=== PATIENT | female | born 1990 | race American Indian/Alaskan Native ===

== ENCOUNTER 2019-12-26 19:37 | Emergency (ER) | payer MEDICAID, SELFPAY ==
[2019-12-26 19:48] VITALS: BP 143/83; PULSE 95; RESP 18; TEMP 37.1; O2SAT 99; BMI 17.2
[2019-12-26 21:18] VITALS: BP 111/68; PULSE 85; RESP 16; O2SAT 97
--- NOTE | 2019-12-26 21:23 | ED.SKABFB ---
HPI - Skin/Abscess/Foreign Bdy <Sudhir Cao [facility] - Last Filed: 12/26/19 21:44> General Chief complaint: Skin/Abscess/Foreign Body Stated complaint: Needs Breast Examine Time Seen by Provider: 12/26/19 20:40 Source: patient Mode of arrival: Ambulatory Limitations: no limitations History of Present Illness HPI narrative: This is a 29-year-old female, smoker, who has noncontributing medical history presents to ED with chief complain of intermittent bilateral breast tenderness and small lumps. Patient reports she noticed 1st about a year ago and last 6 months patient had increasing breast sensitivity. Patient reports some red dots on side of breasts. Also she reports intermittent nausea, medial elbow joint pain, and some weight loss. Patient denies fever, chills, vomiting. Patient denies deformity or small joint stiffness. Patient denies family history of rheumatoid arthritis. She reports paternal grandmother had breast cancer and she thinks her maternal grandmother also had breast disease. Patient denies taking hormonal control pills. She is not sure breast tenderness is related to premenstrual symptoms. 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 Related Data Allergies Allergy/AdvReac Type Severity Reaction Status Date / Time No Known Drug Allergies Allergy Verified 12/26/19 19:54 Review of Systems <Sudhir SanfordMariposa [facility] - Last Filed: 12/26/19 21:44> Review of Systems Narrative: General: Denies fever, chills, fatigue, malaise, sweats. HEENT: Denies sinus pain, ear pain, sore throat, difficulty swallowing, dizziness. Respiratory: Denies dyspnea, cough, wheezing, hemoptysis, sputum. Cardiovascular: Denies chest pain, palpitations, orthopnea, edema. Gastrointestinal: Denies (+) intermittent nausea, vomiting, abdominal pain, diarrhea, constipation, melena. : Denies dysuria, frequency, incontinence, hematuria, urinary retention. Musculoskeletal: See HPI Skin: See HPI Neurologic: Denies weakness, headache, numbness, change in speech, confusion, seizures, incoordination. Psychiatric: No concerning psychosocial issues. 12-point review of systems is negative except for those stated above. Patient History <Sudhir ANTONIO Cao - Last Filed: 12/26/19 21:44> Medical History No significant past medical history (Acute) Surgical History No pertinent past surgical history (Acute) Social History Smoking Status: Never smoker Smoking Status: Never smoker alcohol intake frequency: 0-2 drinks per day Substance Use Type: marijuana Exam <ANTONIO Baird - Last Filed: 12/26/19 21:44> Narrative Exam Narrative: GEN: Alert, oriented x 3, well but thin appearing and in no acute distress. Head: Normal cephalic, atraumatic. No scalp or temporal tenderness, palpable mass or rash. EYES: Pupils are equal, round, and reactive to light and accommodation. Extraocular muscles are intact bilaterally. There is no subconjunctival hemorrhage, exudate and sclera non-icteric. ENT: Hearing grossly intact. Nose without bleeding, purulent discharge or deviation. Mucous membrane moist, no mucosal lesion. Throat without erythema, tonsillar hypertrophy or exudate. Uvula in midline, airway patent. Neck: Trachea in midline. No JVD, non-tender without lymphadenopathy. No masses or thyroid megaly. Supple, non-tender and no meningeal signs. CARDIAC: Normal regular rate and rhythm without murmurs, gallops, or rubs. No chest wall tenderness. No peripheral edema, cyanosis or pallor. Capillary refill is less than 2 seconds. RESPIRATORY: Lungs are clear to auscultate bilaterally. No cough, wheezes, rales, or rhonchi. No stridor, respiratory distress, increase work of breathing, or accessary muscle used. ABD: Abdomen soft, nontender and non-distended. No guarding or rebound tenderness to palpate. Bowel sounds are normal in all 4 quadrants. There is no palpable masses or organomegaly. BREAST: Chaperoned by XIMENA Malone. Breasts are symmetrical, no dimples or nipple drainage. No [place] like uneven skin tone appreciate. No inverted nipples. No mass or swelling appreciated. No warmth, erythema skin. EXT: Full painless ROM of all extremities with no loss of sensation, strength, effusion or edema. No erythema, deformity, warmth to palpate in left medial elbow or bilateral hands or fingers. SKIN: Warm, dry, normal color for patient. No erythema, lesions or rash over visible areas. BACK: Nontender without deformity or crepitance. No flank tenderness. NEUROLOGICAL: Alert and oriented to place, time and person. Sensation and motor function intact bilaterally. No facial droops, dysphasia. PSYCHIATRIC: Good judgement and reason, without hallucinations, abnormal affect or abnormal behaviors during the examination. Patient is not suicidal. Initial Vital Signs Initial Vital Signs: Vital Signs Temperature 98.7 F 12/26/19 19:48 Pulse Rate 95 H 12/26/19 19:48 Respiratory Rate 18 12/26/19 19:48 Blood Pressure 143/83 H 12/26/19 19:48 Pulse Oximetry 99 12/26/19 19:48 <Giacomo Vázquez MD - Last Filed: 12/27/19 03:12> Initial Vital Signs Initial Vital Signs: Vital Signs Temperature 98.7 F 12/26/19 19:48 Pulse Rate 95 H 12/26/19 19:48 Respiratory Rate 18 12/26/19 19:48 Blood Pressure 143/83 H 12/26/19 19:48 Pulse Oximetry 99 12/26/19 19:48 Scores <ANTONIO Baird - Last Filed: 12/26/19 21:44> GCS Spray coma scale eye opening: Spontaneous [place] coma scale verbal response: Orientated Spray coma scale motor response: Obey commands Spray coma scale total score: 15 qSOFA Altered Mental Status (GCS <15): No Respiratory rate greater than/equal to 22: No Systolic blood pressure less than or equal to 100: No qSOFA Total: 0 0-1 Not High Risk 1-3 High risk Course <ANTONIO Baird - Last Filed: 12/26/19 21:44> Vital Signs Vital signs: Vital Signs - 8 hr 12/26/19 19:48 12/26/19 21:18 Temperature 98.7 F Pulse Rate 95 H 85 Respiratory Rate 18 16 Blood Pressure 143/83 H 111/68 Pulse Oximetry 99 97 <Giacomo Vázquez MD - Last Filed: 12/27/19 03:12> Vital Signs Vital signs: Vital Signs - 8 hr 12/26/19 19:48 12/26/19 21:18 Temperature 98.7 F Pulse Rate 95 H 85 Respiratory Rate 18 16 Blood Pressure 143/83 H 111/68 Pulse Oximetry 99 97 MDM - Skin/Abscess/Foreign Bdy <ANTONIO Baird - Last Filed: 12/26/19 21:44> Differential Diagnosis Differential diagnosis: Likely other (breast mass, fibrocystic breast, mastalgia, pre menstrual symptoms, ) Medical Records Attestation: I reviewed the patient's medical records. Lab Data Attestation: I reviewed the patient's lab results. Labs: Point of Care Testing Test Results Negative Urine Dip Bedside Urine Glucose Negative Bedside Urine Bilirubin - Negative Bedside Urine Ketone - Negative Urine Specific [place] 1.000 Bedside Urine Occult Blood - Negative Bedside Urine pH 6.5 Bedside Urine Protein - Negative Bedside Urine Urobilinogen - Negative Bedside Urine Nitrite - Negative Bedside Urine Leukocytes - Negative Esterase MDM Narrative Medical decision making narrative: This is a 29 year female who presents to ED with intermittent bilateral breast tenderness last 1 year which became more consistent for last 6 months. test was negative. Breast exam is not consistent with mastitis and was unremarkable. Patient has another ultrasound test scheduled in 3 days. We discussed in details of abnormal findings during breast self exam. Patient also reports nonspecific symptoms nausea, some weight loss, and big joint discomfort. Again, physical exam was unremarkable. Patient advised to take [id number] Tylenol and or Motrin as needed for discomfort. Assured the patient findings are not consistent with infection or breast cancer. Highly recommended to follow up with breast ultrasound test in 3 days as scheduled. Also advised patient to follow-up with primary care physician with other nonspecific symptoms and further evaluation. Patient verbalized understanding and agreement with treatment plan. <Giacomo Vázquez MD - Last Filed: 12/27/19 03:12> Lab Data Labs: Point of Care Testing Test Results Negative Urine Dip Bedside Urine Glucose Negative Bedside Urine Bilirubin - Negative Bedside Urine Ketone - Negative Urine Specific [place] 1.000 Bedside Urine Occult Blood - Negative Bedside Urine pH 6.5 Bedside Urine Protein - Negative Bedside Urine Urobilinogen - Negative Bedside Urine Nitrite - Negative Bedside Urine Leukocytes - Negative Esterase Discharge Plan Departure Patient Disposition: Home Clinical Impression: Breast pain in female Discharge Date/Time: 12/26/19 21:19 Instructions: DI for Breast Pain (Mastalgia) Activity Restrictions/Additional Instructions: You have been diagnosed with intermitten breast tenderness and lumpy to palpate. Unremarkable physical exam. What to do: *Take your medications as directed. You can take [id number] Tylenol and or Motrin as needed for discomfort. *Follow up with your primary care provider in 2-3 days, call for an appointment. Please follow-up with ultrasound test appointment on . Let them know you were seen in the ED and that we asked you to be seen in follow up. You can follow-up with your primary care physician as needed for generalized bodyaches, elbow joint pain and weight loss. *Return to ED if you have any new, worsening, or concerning symptoms, such as [worsening pain, fever, chills, nausea or vomiting, chest pain, breathing difficulty, or any acute concerns].
== END 2019-12-26 21:19 | disposition home or self-care (01) ==
PROVIDERS: Emergency Provider Nurse Practitioner Family
DX: N64.4 Mastodynia (principal)
CPT/HCPCS: 81003; 81025; 99282

== ENCOUNTER 2020-02-01 00:08 | Emergency (ER) | payer OTHER, SELFPAY ==
[2020-02-01 00:15] VITALS: BP 127/85; PULSE 90; RESP 17; TEMP 37; O2SAT 100; BMI 16.2
--- NOTE | 2020-02-01 00:21 | ED_ITS ---
HPI - General Adult General Chief complaint: Extremity Problem,Nontraumatic Stated complaint: Had mastectomy yesterday and leg is swelling Time Seen by Provider: 02/01/20 00:15 Source: patient Mode of arrival: Ambulatory Limitations: no limitations History of Present Illness HPI narrative: Patient is a 30-year-old female who yesterday underwent a double mastectomy and discharged on the same day. She reports that this evening she had pain behind her left knee and felt like her left leg was somewhat swollen and somewhat tense. She denies any chest pain. States she has had some shortness of breath but this is not new and has been around since prior to her surgery. No fevers. She was concerned about a blood clot in her left lower extremity. Related Data Allergies Allergy/AdvReac Type Severity Reaction Status Date / Time No Known Drug Allergies Allergy Verified 12/26/19 19:54 Review of Systems Constitutional Constitutional: Denies fever(s) Cardiovascular Cardiovascular: Denies chest pain Respiratory Respiratory: Denies cough Musculoskeletal Comments: Pain behind the left knee with swelling Integumentary/Breasts Skin/Breast: Denies lesions and Denies rash Neurologic Neurologic: Denies behavioral changes Psychiatric Psychiatric: Denies behavioral changes Hematologic/Lymphatic Hematologic/Lymphatic: Denies easy bleeding and Denies easy bruising Patient History Medical History (Updated 02/01/20 @ 01:22 by Antoni Patel DO) No significant past medical history Surgical History No pertinent past surgical history Social History Smoking Status: Never smoker Smoking Status: Never smoker alcohol intake frequency: 0-2 drinks per day Substance Use Type: marijuana Exam Initial Vital Signs Initial Vital Signs: Vital Signs Temperature 98.6 F 02/01/20 00:15 Pulse Rate 90 02/01/20 00:15 Respiratory Rate 17 02/01/20 00:15 Blood Pressure 127/85 02/01/20 00:15 Pulse Oximetry 100 02/01/20 00:15 Const General: cooperative and comfortable Limitations: mental status not altered HENMT Head: normal to inspection and normocephalic Resp Effort & Inspection: normal respiratory effort Auscultation: clear to auscultation bilaterally Cardio Rate: regular rate Rhythm: regular rhythm Skin Lesions: no lesions Rashes: no rashes Extrem Other: Patient's left lower extremity is slightly swollen compared to the right however has no pitting edema. Calf is soft. Thigh is soft. Reports tenderness both lateral and posterior to the left knee. Psych Appearance: grossly normal and well kempt Course Orders Ordered: ED Orders 02/01/20 00:22 [facility] venous low extrem lt Stat 02/01/20 00:25 Basic Metabolic Panel Stat Complete Blood Count AUTO DIFF Stat Vital Signs Vital signs: Vital Signs - 8 hr 02/01/20 00:15 Temperature 98.6 F Pulse Rate 90 Respiratory Rate 17 Blood Pressure 127/85 Pulse Oximetry 100 Medical Decision Making Lab Data Lab results reviewed: Yes I reviewed the patient's lab results. Result diagrams: 02/01/20 00:25 02/01/20 00:25 Labs: Lab Results 02/01/20 02/01/20 Range/Units 00:25 00:25 WBC 10.1 (4.5-11.0) X10^3/uL RBC 3.63 L (4.0-5.2) X10^6/uL Hgb 10.7 L (12.0-16.0) g/dL Hct 31.3 L (36-46) % MCV 86.3 (80-100) fL MCH 29.4 (26-34) PG MCHC 34.0 (30-36) % RDW 12.7 (11.6-14.8) % Plt Count 249 (150-400) X10^3/uL Neut % (Auto) 62.4 (50-75) % Lymph % (Auto) 30.3 (25-40) % [place] % (Auto) 5.7 (3-14) % Eos % (Auto) 1.1 L (2-4) % Baso % (Auto) 0.5 (0-2) % Neut # (Auto) 6300 (7795-6251) /uL Lymph # (Auto) 3100 (2301-7342) /uL [place] # (Auto) 600 (0-900) /uL Eos # (Auto) 100 (0-450) /uL Baso # (Auto) 0 (0-100) /uL Sodium 128 L (137-145) mmol/L Potassium 3.5 (3.4-5.1) mmol/L Chloride 94 L (98-107) mmol/L Carbon Dioxide 28 (22-32) mmol/L BUN 5 L (7-17) mg/dL Creatinine 0.73 (0.52-1.04) mg/dL Estimated GFR > 60.0 (>60) mL/min BUN/Creatinine Ratio 6.8 (6-22) Glucose 116 H (70-100) mg/dL Calcium 8.4 (8.4-10.2) mg/dL Imaging Data US - DVT: Radiologist's Impression: No DVT seen in the left lower extremity MDM Narrative Medical decision making narrative: No DVT seen in the left lower extremity. It is somewhat swollen compared to the right. I suspect that her presenting symptoms are musculoskeletal in origin. No need for anticoagulation. Discussed all this with the patient. We did discuss return precautions and follow-up instructions. She expressed understanding and agreement. Discharge Plan Departure Patient Disposition: Home Clinical Impression: Left leg swelling Activity Restrictions/Additional Instructions: Continue all of your postoperative instructions given to you by the surgeon. I do recommend that you get up and walk around like we discussed. Keep all of your scheduled medical appointments. Return to the emergency department for any new or worsening symptoms
--- NOTE | 2020-02-01 00:22 | DI.US.S_ITS ---
PROCEDURE: US PERIPH VENOUS LOW EXTREM LT INDICATIONS: LEFT LEG EDEMA ONE DAY POST BILATERAL MASTECTOMY TECHNIQUE: Real-time imaging, as well as color and pulse Doppler interrogation, were performed of the lower extremity deep veins from the inguinal ligament to the popliteal fossa. COMPARISON: None. FINDINGS: The common femoral, femoral and popliteal veins are normally compressible, and free of intraluminal thrombus. Color and pulse Doppler demonstrate normal phasic intraluminal flow. There is normal augmentation response to distal compression maneuver. IMPRESSION: No DVT found. Dictated by: Hector Hancock M.D. on 02/01/2020 at 9:02 Approved by: Hector Hancock M.D. on 02/01/2020 at 9:03
[2020-02-01 00:34] LABS: Add Manual Diff / Slide Review NO; Basophils Absolute Auto 0 /uL (0-100); Basophils Percent Auto 0.5 % (0-2); Eosinophils Absolute Auto 100 /uL (0-450); Eosinophils Percent Auto 1.1 % (2-4); Hematocrit 31.3 % (36-46); Hemoglobin 10.7 g/dL (12.0-16.0); Lymphocytes Absolute Auto 3100 /uL (1100-4500); Lymphocytes Percent Auto 30.3 % (25-40); Mean Corpuscular Hemoglobin 29.4 PG (26-34); Mean Corpuscular Volume 86.3 fL (80-100); Monocytes Absolute Auto 600 /uL (0-900); Monocytes Percent Auto 5.7 % (3-14); Neutrophils Absolute Auto 6300 /uL (1500-7000); Neutrophils Percent Auto 62.4 % (50-75); Platelet Count 249 X10^3/uL (150-400); Red Blood Cell Count 3.63 X10^6/uL (4.0-5.2); Red Cell Distribution Width 12.7 % (11.6-14.8); White Blood Cell Count 10.1 X10^3/uL (4.5-11.0)
[2020-02-01 00:46] LABS: BUN Creatinine Ratio 6.8 (6-22); Blood Urea Nitrogen 5 mg/dL (7-17); Calcium 8.4 mg/dL (8.4-10.2); Carbon Dioxide 28 mmol/L (22-32); Chloride 94 mmol/L (98-107); Estimated Glomerular Filt Rate > 60.0 mL/min (>60); Glucose 116 mg/dL (70-100); HEMOLYSIS < 15 (0-50); Potassium 3.5 mmol/L (3.4-5.1); Sodium 128 mmol/L (137-145)
[2020-02-01 01:52] VITALS: PULSE 62; RESP 18; O2SAT 97
== END 2020-02-01 01:58 | disposition home or self-care (01) ==
PROVIDERS: Emergency Provider Emergency Medicine
DX: M79.89 Other specified soft tissue disorders (principal); Z98.890 Other specified postprocedural states
CPT/HCPCS: 36415; 80048; 85025; 93971; 99284

== ENCOUNTER 2020-03-17 00:05 | Emergency (ER) | payer OTHER, MEDICAID, SELFPAY ==
[2020-03-17] VITALS (10 sets, daily range): BP systolic 98–147; BP diastolic 57–88; PULSE 91–162; RESP 15–24; O2SAT 93–100; BMI 34.5
--- NOTE | 2020-03-17 00:12 | ED.ARRPALP ---
HPI - Arrhythmia/Palpitations General Chief Complaint: Arrhythmia/Palpitations Stated Complaint: heart beating fast,undergoing chemo Time Seen by Provider: 03/17/20 00:05 Source: patient and family Mode of arrival: Ambulatory Limitations: no limitations History of Present Illness HPI narrative: Of breast cancer and recent initiation of chemotherapy presents with her significant other and a chief complaint of a relatively sudden onset rapid heart rate and anxious feeling. She has been in her normal state of health throughout the course the day. She denies any nausea, vomiting or diarrhea. She denies any chest pain but feels short of breath. She has numbness and tingling around her lips in her fingertips and feels quite anxious. She had bilateral mastectomy in January and 1st dose of chemotherapy last week. She sees Oncology locally and otherwise denies new medications or dietary change. She denies use of any street drugs or alcohol. MD complaint: rapid heart beat, heart racing, palpitations and irregular heart beat Onset (ago): hour(s) Duration: constant Severity: moderate Context: occurred during rest Associated symptoms: anxiety Related Data Allergies Allergy/AdvReac Type Severity Reaction Status Date / Time No Known Drug Allergies Allergy Verified 12/26/19 19:54 Review of Systems Constitutional Constitutional: Denies chills, Denies fatigue, Denies fever(s), Denies frequent falls, Denies lethargy and Denies weakness Eyes Eyes: Denies change in vision, Denies eye discharge, Denies irritation and Denies loss of vision ENT Ears, Nose, Mouth, and Throat: Denies change in voice, Denies dizziness, Denies neck pain, Denies sore throat and Denies throat swelling Cardiovascular Cardiovascular: Denies chest pain, Reports irregular heart rhythm, Reports lightheadedness, Reports palpitations, Reports dyspnea, Denies dyspnea on exertion and Denies orthopnea Respiratory Respiratory: Denies cough, Reports dyspnea, Denies dyspnea on exertion and Denies wheezing Gastrointestinal Gastrointestinal: Denies abdominal pain, Denies change in bowel habits, Denies diarrhea, Denies nausea and Denies vomiting Musculoskeletal Musculoskeletal: Denies neck pain and Denies numbness Integumentary/Breasts Skin/Breast: Denies pruritus, Denies erythema, Denies rash and Denies wounds Neurologic Neurologic: Denies behavioral changes, Denies confusion, Denies dizziness, Denies frequent falls, Denies loss of vision, Denies numbness and Denies weakness Psychiatric Psychiatric: Denies anxiety, Denies behavioral changes, Denies confusion, Denies depression, Denies homicidal ideation and Denies suicidal ideation Endocrine Endocrine: Denies fatigue, Denies flushing and Reports palpitations Hematologic/Lymphatic Hematologic/Lymphatic: Denies easy bruising Allergic/Immunologic Allergic/Immunologic: Denies urticaria, Denies throat swelling and Denies wheezing Patient History Medical History (Updated 03/17/20 @ 03:05 by Chris Troibio DO) No significant past medical history Surgical History No pertinent past surgical history Social History Smoking Status: Never smoker Smoking Status: Never smoker alcohol intake frequency: 0-2 drinks per day Substance Use Type: marijuana Exam Narrative Exam Narrative: GENERAL: [30] year old patient appears stated age. Thin, very anxious, rapid breathing. HEAD: Atraumatic. Normocephalic. EYES: Pupils equal round and reactive. Extraocular motions intact. No scleral icterus. No injection or drainage. ENT: Nose without bleeding, purulent drainage. Throat without erythema, tonsillar hypertrophy or exudate. Airway patent. NECK: Trachea midline. Non tender CARDIOVASCULAR: Tachycardic and regular without murmurs, gallops, or rubs. RESPIRATORY: Clear to auscultation. Breath sounds equal bilaterally. No wheezes, rales, or rhonchi. GASTROINTESTINAL: Abdomen soft, non-tender, nondistended. EXTREMITIES: No edema or joint tenderness. BACK: Nontender without deformity or crepitance. No flank tenderness. NEURO: AOx3. SKIN: No rash or erythema of visible areas Initial Vital Signs Initial Vital Signs: Vital Signs Pulse Rate 162 H 03/17/20 00:15 Pulse Oximetry 100 03/17/20 00:15 Scores Wells' Criteria for PE Clinical signs and symptoms of DVT: No PE is #1 Dx or equally likely: No Heart rate > 100: Yes Immobilization at least 3 days or surg in previous 4 weeks: No History of PE or DVT: No Hemoptysis: No Malignancy w/Treatment within 6 months or palliative: Yes Wells' PE Score total: 2.5 Course Course Course Narrative: patient feeling much better, HR down to the 90s. Repeat WBC down to 22. CTA shows no PE or other acute process. Orders Ordered: ED Orders 03/17/20 00:15 EKG-12 Lead Stat 03/17/20 00:45 Basic Metabolic Panel Stat Complete Blood Count AUTO DIFF Stat D Dimer Stat Magnesium Stat Thyroid Stimulating Hormone Stat Troponin & CK Cardiac Panel Stat 03/17/20 01:34 CT angio chest PE protocol Stat 03/17/20 02:40 White Blood Cell Count Stat Sodium Chloride (Normal Saline 0.9%) 1,000 mls @ 150 mls/hr IV CONT MISAEL Last Admin: 03/17/20 01:01 Dose: 150 mls/hr Documented by: JASPER Consultations Consultation #1: call to supervisor photocomposition Oncology. (Dr. Lopez) 03/07 got Doxorubicin and Neulasta with echo noting EF 65%. Not likely a direct cardiotoxic from the meds. Recommends hydration and close follow up. Return precautions. Vital Signs Vital signs: Vital Signs - 8 hr 03/17/20 00:15 03/17/20 00:30 03/17/20 01:00 Pulse Rate 162 H 157 H 146 H Respiratory Rate 23 15 Blood Pressure 147/88 H 127/82 Pulse Oximetry 100 99 93 03/17/20 01:30 03/17/20 02:00 03/17/20 02:09 Pulse Rate 122 H 114 H 119 H Respiratory Rate 17 17 17 Blood Pressure 116/67 109/62 Pulse Oximetry 96 99 96 03/17/20 02:30 03/17/20 03:00 Pulse Rate 110 H 102 H Respiratory Rate 24 24 Blood Pressure 108/63 98/58 L Pulse Oximetry 95 97 MDM - Arrhythmia/Palpitations Lab Data Result diagrams: 03/17/20 02:40 03/17/20 00:45 Labs: Lab Results 03/17/20 03/17/20 03/17/20 Range/Units 00:45 00:45 00:45 WBC 28.9 H (4.5-11.0) X10^3/uL RBC 4.14 (4.0-5.2) X10^6/uL Hgb 11.8 L (12.0-16.0) g/dL Hct 35.4 L (36-46) % MCV 85.5 (80-100) fL MCH 28.5 (26-34) PG MCHC 33.3 (30-36) % RDW 12.7 (11.6-14.8) % Plt Count 246 (150-400) X10^3/uL Neut % (Auto) Not Reportable Lymph % (Auto) Not Reportable [place] % (Auto) Not Reportable Eos % (Auto) Not Reportable Baso % (Auto) Not Reportable Lymph # (Auto) Not Reportable [place] # (Auto) Not Reportable Baso # (Auto) Not Reportable Total Counted 100 Seg Neutrophils % 39.0 (38-70) % Band Neutrophils % 16.0 H (3-7) % Lymphocytes % (Manual) 33.0 (25-45) % Atypical Lymphs % 8.0 H ( - 0) % Monocytes % (Manual) 2.0 (2-11) % Myelocytes % 2.0 H (-0) % Neutrophils # (Manual) 55432 H (4630-4002) /uL RBC Morphology Normal morphology D-Dimer (<230) ng/mL Sodium 136 L (137-145) mmol/L Potassium 3.6 (3.4-5.1) mmol/L Chloride 102 (98-107) mmol/L Carbon Dioxide 23 (22-32) mmol/L BUN 5 L (7-17) mg/dL Creatinine 0.84 (0.52-1.04) mg/dL Estimated GFR > 60.0 (>60) mL/min BUN/Creatinine Ratio 6.0 (6-22) Glucose 145 H (70-100) mg/dL Calcium 9.4 (8.4-10.2) mg/dL Magnesium 1.9 (1.6-2.3) mg/dL Total Creatine Kinase 29 L (30-135) U/L CK-MB (CK-2) TNP CK-MB (CK-2) Rel Index TNP Troponin I < 0.012 (0.01-0.034) ng/mL TSH 1.19 (0.47-4.68) uIU/mL 03/17/20 03/17/20 Range/Units 00:45 02:40 WBC 22.9 H (4.5-11.0) X10^3/uL RBC (4.0-5.2) X10^6/uL Hgb (12.0-16.0) g/dL Hct (36-46) % MCV (80-100) fL MCH (26-34) PG MCHC (30-36) % RDW (11.6-14.8) % Plt Count (150-400) X10^3/uL Neut % (Auto) Lymph % (Auto) [place] % (Auto) Eos % (Auto) Baso % (Auto) Lymph # (Auto) [place] # (Auto) Baso # (Auto) Total Counted Seg Neutrophils % (38-70) % Band Neutrophils % (3-7) % Lymphocytes % (Manual) (25-45) % Atypical Lymphs % ( - 0) % Monocytes % (Manual) (2-11) % Myelocytes % (-0) % Neutrophils # (Manual) (2105-6592) /uL RBC Morphology D-Dimer < 200 (<230) ng/mL Sodium (137-145) mmol/L Potassium (3.4-5.1) mmol/L Chloride (98-107) mmol/L Carbon Dioxide (22-32) mmol/L BUN (7-17) mg/dL Creatinine (0.52-1.04) mg/dL Estimated GFR (>60) mL/min BUN/Creatinine Ratio (6-22) Glucose (70-100) mg/dL Calcium (8.4-10.2) mg/dL Magnesium (1.6-2.3) mg/dL Total Creatine Kinase (30-135) U/L CK-MB (CK-2) CK-MB (CK-2) Rel Index Troponin I (0.01-0.034) ng/mL TSH (0.47-4.68) uIU/mL Discharge Plan Departure Patient Disposition: Home Clinical Impression: Sinus tachycardia, Heart palpitations, Anxiety Instructions: DI for Palpitations Activity Restrictions/Additional Instructions: *You have been diagnosed with [sinus tachycardia and palpitations] *What to do: * continue to take medications as directed *Follow up with your primary oncologist, call Thursday morning for an appointment. Let them know you were seen in the Emergency Department and that we ask that you be seen in follow up *Return to ER if you should have any new, worsening or concerning symptoms
[2020-03-17 01:01] LABS: Add Manual Diff / Slide Review YES; Hematocrit 35.4 % (36-46); Hemoglobin 11.8 g/dL (12.0-16.0); Mean Corpuscular HGB Conc 33.3 % (30-36); Mean Corpuscular Hemoglobin 28.5 PG (26-34); Mean Corpuscular Volume 85.5 fL (80-100); Platelet Count 246 X10^3/uL (150-400); Red Blood Cell Count 4.14 X10^6/uL (4.0-5.2); Red Cell Distribution Width 12.7 % (11.6-14.8); White Blood Cell Count 28.9 X10^3/uL (4.5-11.0)
[2020-03-17] MEDS: SODIUM CHLORIDE 0.9% 1,000 ML 150 ML IV (01:01)
[2020-03-17] MEDS: LIDOCAINE 1% (PF) 2 ML (01:02)
[2020-03-17 01:05] LABS: Blood Urea Nitrogen 5 mg/dL (7-17); Calcium 9.4 mg/dL (8.4-10.2); Carbon Dioxide 23 mmol/L (22-32); Chloride 102 mmol/L (98-107); Creatine Kinase 29 U/L (30-135); Estimated Glomerular Filt Rate > 60.0 mL/min (>60); Glucose 145 mg/dL (70-100); HEMOLYSIS < 15 (0-50); Magnesium 1.9 mg/dL (1.6-2.3); Potassium 3.6 mmol/L (3.4-5.1); Sodium 136 mmol/L (137-145)
[2020-03-17 01:17] LABS: Troponin I < 0.012 ng/mL (0.01-0.034)
--- NOTE | 2020-03-17 01:34 | DI.CT.S_ITS ---
PROCEDURE: CT ANGIO CHEST PE PROTOCOL INDICATIONS: tachycardia, shortness of breath, cancer, recent surgery TECHNIQUE: After the administration of intravenous contrast, 2 mm thick sections acquired from the pulmonary apices to the posterior costophrenic angles. 3-dimensional maximum intensity projection (MIP) coronal and sagittal reformats were then acquired through the thorax. For radiation dose reduction, the following was used: automated exposure control, adjustment of mA and/or kV according to patient size. COMPARISON: [facility], CT, CT CHEST ABDOMEN PELVIS WITH CONTRAST, 01/25/2020, 10:49. [facility], CR, XR CHEST 2 VIEWS, 02/25/2020, 22:58. FINDINGS: Image quality: Excellent. Pulmonary arteries: Pulmonary arteries are normal in size, and demonstrate no intraluminal filling defects to suggest central pulmonary embolism. Lungs and pleura: Lungs are clear. No pleural effusions or pneumothorax. Central and peripheral airways are patent. Mediastinum: Heart size is normal, without pericardial effusion. No mediastinal or hilar adenopathy. Thoracic aorta is normal in caliber and enhancement. Esophagus is normal in caliber, without hiatal hernia. Bones and chest wall: There is a right-sided chest port, with the tip within the inferior aspect of the superior vena cava. Left breast and axillary clips are seen. A right breast clip is seen laterally. No suspicious bony lesions. Ribs and thoracic spine appear intact throughout. Thyroid gland demonstrates no significant abnormality. No axillary or supraclavicular adenopathy. Abdomen: Visualized upper abdominal solid organs appear normal in the early arterial phase of enhancement. IMPRESSION: Negative for pulmonary embolism. Incidental note is made of: Right-sided chest port Left breast and axillary clips Right breast clip. Note: No significant discrepancy from the preliminary report. Dictated by: Jonny Ramos M.D. on 03/17/2020 at 7:55 Approved by: Jonny Ramos M.D. on 03/17/2020 at 7:58
[2020-03-17 01:47] LABS: D Dimer < 200 ng/mL (<230)
[2020-03-17 02:05] LABS: Thyroid Stimulating Hormone 1.19 uIU/mL (0.47-4.68)
[2020-03-17 02:26] LABS: Neutrophils Absolute Manual 15895 /uL (3000-5900); RBC Morphology Normal Morphology; Total Cells Counted 100
[2020-03-17 02:48] LABS: White Blood Cell Count 22.9 X10^3/uL (4.5-11.0)
== END 2020-03-17 04:15 | disposition home or self-care (01) ==
PROVIDERS: Emergency Provider Emergency Medicine
DX: R00.0 Tachycardia, unspecified (principal); R00.2 Palpitations; F41.9 Anxiety disorder, unspecified; R20.0 Anesthesia of skin; R06.00 Dyspnea, unspecified
CPT/HCPCS: 36415; 71275; 80048; 82550; 83735; 84443; 84484; 85007; 85025; 85048; 85379; 93005; 96360; 96361; 99284; Q9967

== ENCOUNTER 2021-02-12 21:11 | Emergency (ER) | payer OTHER, MEDICAID, SELFPAY ==
[2021-02-12 21:19] VITALS: BP 109/70; PULSE 65; RESP 15; TEMP 37.2; O2SAT 100; BMI 15.7
[2021-02-12 21:25] VITALS: PULSE 60; RESP 20; O2SAT 100
[2021-02-12 21:30] VITALS: BP 114/64; PULSE 63; RESP 18; O2SAT 100
[2021-02-12 21:48] LABS: Alanine Aminotransferase 12 IU/L (<35); Albumin 4.2 g/dL (3.5-5.0); Albumin Globulin Ratio 1.5 (1.0-2.8); Alkaline Phosphatase 45 U/L (38-126); Aspartate Aminotransferase 23 IU/L (14-36); BUN Creatinine Ratio 15.4 (6-22); Bilirubin Total 0.6 mg/dL (0.2-1.3); Blood Urea Nitrogen 10 mg/dL (7-17); Carbon Dioxide 29 mmol/L (22-32); Chloride 105 mmol/L (98-107); Estimated Glomerular Filt Rate > 60.0 mL/min (>60); Globulin 2.8 g/dL (1.7-4.1); Glucose 118 mg/dL (70-100); HEMOLYSIS < 15 (0-50); Lipase 49 U/L (23-300); Potassium 3.4 mmol/L (3.4-5.1); Sodium 140 mmol/L (137-145)
[2021-02-12 21:49] LABS: Add Manual Diff / Slide Review NO; Basophils Absolute Auto 0 /uL (0-100); Eosinophils Absolute Auto 300 /uL (0-450); Eosinophils Percent Auto 6.8 % (2-4); Hematocrit 35.4 % (36-46); Hemoglobin 12.2 g/dL (12.0-16.0); Lymphocytes Absolute Auto 1700 /uL (1100-4500); Lymphocytes Percent Auto 35.6 % (25-40); Mean Corpuscular HGB Conc 34.5 % (30-36); Mean Corpuscular Hemoglobin 29.7 PG (26-34); Monocytes Absolute Auto 300 /uL (0-900); Monocytes Percent Auto 5.3 % (3-14); Neutrophils Absolute Auto 2400 /uL (1500-7000); Neutrophils Percent Auto 51.3 % (50-75); Platelet Count 220 X10^3/uL (150-400); Red Blood Cell Count 4.12 X10^6/uL (4.0-5.2); Red Cell Distribution Width 12.9 % (11.6-14.8); White Blood Cell Count 4.7 X10^3/uL (4.5-11.0)
[2021-02-12] MEDS: PANTOPRAZOLE 40 MG VIAL IV (21:56)
[2021-02-12] MEDS: ONDANSETRON 4 MG/2 ML INJ IV (21:56)
[2021-02-12] MEDS: SODIUM CHLORIDE 0.9% 1,000 ML 1000 ML IV (21:57)
[2021-02-12 22:00] VITALS: BP 124/75; PULSE 60; RESP 20; O2SAT 100
--- NOTE | 2021-02-12 22:09 | PC.NURSE ---
Recent changes in meds. [facility]
[2021-02-12 22:30] VITALS: BP 110/65; PULSE 72; RESP 15; O2SAT 100
--- NOTE | 2021-02-12 22:41 | ED_ITS ---
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 Presents today with nausea vomiting episode. She was admitted last week to [facility] after a syncopal episode, confusion and ongoing nausea. She had multiple tests including brain MRI, CT, ultrasound, blood work she was discharged home on pantoprazole and Compazine along with mirtazapine. She denies any fever or chills. She said that she was feeling at her baseline yesterday and this morning. She had sudden onset of worsening nausea vomiting. She said the vomiting was abnormal for her. EMS reports that she was confused on scene but since transport her arrival to emergency department she is now A&O x4. She states that she does use marijuana to help with some side effects of medication she was told to stop using it because it may be contributing to her nausea. She denies any abdominal pain. Related Data Allergies Allergy/AdvReac Type Severity Reaction Status Date / Time No Known Drug Allergies Allergy Verified 12/26/19 19:54 Review of Systems Review of Systems Narrative: GENERAL: Denies chills, fatigue, malaise, fever, sweats, travel HEENT: Denies sinus pain, ear pain, sore throat, difficulty swallowing, neck pain RESPIRATORY: Denies dyspnea, cough, wheezing, hemoptysis, sputum. CARDIOVASCULAR: Denies chest pain, palpitations, orthopnea, edema GASTROINTESTINAL: See HPI : Denies dysuria, frequency, incontinence, hematuria, urinary retention, flank pain. MUSCULOSKELETAL: Denies weakness, joint pain, or bony pain SKIN: No rash, no erythema, no pruritus NEUROLOGIC: Denies weakness, dizziness, headache, numbness, change in speech, confusion PSYCHIATRIC: No concerning psychosocial issues. 12 point review of systems is negative except for those stated above and HPI Patient History Medical History No significant past medical history Surgical History No pertinent past surgical history Social History Smoking Status: Never smoker Smoking Status: Never smoker alcohol intake frequency: 0-2 drinks per day Substance Use Type: marijuana Exam Initial Vital Signs Initial Vital Signs: Vital Signs Temperature 99 F 02/12/21 21:19 Pulse Rate 65 02/12/21 21:19 Respiratory Rate 15 02/12/21 21:19 Blood Pressure 109/70 02/12/21 21:19 Pulse Oximetry 100 02/12/21 21:19 GENERAL: Well-appearing, well-nourished and in [no acute] distress. HEENT: Head atraumatic,EOMI, pupils reactive, face symmetric, [moist] mucous membranes CARDIOVASCULAR: Regular rate and rhythm without murmurs, rubs or gallops. RESPIRATORY: Breath sounds equal bilaterally, no wheezes rales or rhonchi. ABDOMEN: Soft, nontender. Normoactive bowel sounds all 4 quadrants. No guarding or rebound. EXTREMITIES: Normal range of motion, no clubbing or edema. Neurovascularly intact NEUROLOGICAL: Alert and oriented x4.Normal gait and speech. SKIN: Warm, dry, no laceration, no petechiae, no rashes or lesions. Course Orders Ordered: ED Orders 02/12/21 21:23 Complete Blood Count AUTO DIFF Stat Comprehensive Metabolic Panel Stat Lipase Stat Discontinued Medications Sodium Chloride (Normal Saline 0.9%) 1,000 mls @ 1,000 mls/hr IV CONT MISAEL Last Infusion: 02/12/21 23:04 Dose: 0 mls/hr Documented by: Admin: 02/12/21 21:57 Dose: 1,000 mls/hr Documented by: VARUN Ondansetron HCl (Ondansetron 4 Mg/2 Ml Inj) 4 mg IV NOW ONE Stop: 02/12/21 21:37 Last Admin: 02/12/21 21:56 Dose: 4 mg Documented by: VARUN Pantoprazole Sodium (Pantoprazole 40 Mg Vial) 40 mg IV NOW ONE Stop: 02/12/21 21:37 Last Admin: 02/12/21 21:56 Dose: 40 mg Documented by: VARUN Vital Signs Vital signs: Vital Signs - 8 hr 02/12/21 21:19 02/12/21 21:25 02/12/21 21:30 Temperature 99 F Pulse Rate 65 60 63 Respiratory Rate 15 20 18 Blood Pressure 109/70 114/64 Pulse Oximetry 100 100 100 02/12/21 22:00 02/12/21 22:30 02/12/21 23:00 Temperature Pulse Rate 60 72 71 Respiratory Rate 20 15 18 Blood Pressure 124/75 110/65 109/66 Pulse Oximetry 100 100 100 MDM - Nausea/Vomiting/Diarrhea Lab Data Result diagrams: 02/12/21 21:23 02/12/21 21:23 Labs: Lab Results 02/12/21 02/12/21 Range/Units 21:23 21:23 WBC 4.7 (4.5-11.0) X10^3/uL RBC 4.12 (4.0-5.2) X10^6/uL Hgb 12.2 (12.0-16.0) g/dL Hct 35.4 L (36-46) % MCV 86.0 (80-100) fL MCH 29.7 (26-34) PG MCHC 34.5 (30-36) % RDW 12.9 (11.6-14.8) % Plt Count 220 (150-400) X10^3/uL Neut % (Auto) 51.3 (50-75) % Lymph % (Auto) 35.6 (25-40) % [place] % (Auto) 5.3 (3-14) % Eos % (Auto) 6.8 H (2-4) % Baso % (Auto) 1.0 (0-2) % Neut # (Auto) 2400 (2880-8755) /uL Lymph # (Auto) 1700 (2878-4305) /uL [place] # (Auto) 300 (0-900) /uL Eos # (Auto) 300 (0-450) /uL Baso # (Auto) 0 (0-100) /uL Sodium 140 (137-145) mmol/L Potassium 3.4 (3.4-5.1) mmol/L Chloride 105 (98-107) mmol/L Carbon Dioxide 29 (22-32) mmol/L BUN 10 (7-17) mg/dL Creatinine 0.65 (0.52-1.04) mg/dL Estimated GFR > 60.0 (>60) mL/min BUN/Creatinine Ratio 15.4 (6-22) Glucose 118 H (70-100) mg/dL Calcium 9.0 (8.4-10.2) mg/dL Total Bilirubin 0.6 (0.2-1.3) mg/dL AST 23 (14-36) IU/L ALT 12 (<35) IU/L Alkaline Phosphatase 45 (38-126) U/L Total Protein 7.0 (6.3-8.2) g/dL Albumin 4.2 (3.5-5.0) g/dL Globulin 2.8 (1.7-4.1) g/dL Albumin/Globulin Ratio 1.5 (1.0-2.8) Lipase 49 (23-300) U/L Urine Dip Bedside Urine Glucose Negative Bedside Urine Bilirubin - Negative Bedside Urine Ketone - Negative Urine Specific Imogene 1.015 Bedside Urine Occult Blood - Negative Bedside Urine pH 6.0 Bedside Urine Protein - Negative Bedside Urine Urobilinogen - Negative Bedside Urine Nitrite - Negative Bedside Urine Leukocytes - Negative Esterase MDM Narrative Medical decision making narrative: Worker to been received and reviewed from [facility] she was admitted on February 04 and discharged on February 08. She had a very complete workup multiple imaging studies and blood work. Today she had episode of sudden vomiting which has now been controlled. I think a lot of her symptoms may be related to Lupron and tamoxifen therapy. She overall is feeling significantly better she is tolerating fluids. She states CBD was the only thing helping with her nausea and then she stopped after her recent admission and she has had consistent ongoing nausea with vomiting today. At this time I actually recommend that she take the CBD but discussed cyclic vomiting with chronic ongoing marijuana use. Discharge Plan Departure Patient Disposition: Home Clinical Impression: Vomiting Instructions: DI for Vomiting -- Adult Activity Restrictions/Additional Instructions: *You have been diagnosed with vomiting *What to do: At this time your nausea/vomiting may or may not be contributed to your hormone medications. At this time please take what ever is best for you. Chronic daily marijuana use can cause cyclic vomiting syndrome. It is unknown if this is related to your symptoms at this time. *Continue to take medications as directed *Follow up with your primary care provider in 2-3 days *Return to ER if you should have persistent vomiting, worsening confusion or any new, worsening or concerning symptoms
[2021-02-12 23:00] VITALS: BP 109/66; PULSE 71; RESP 18; O2SAT 100
== END 2021-02-12 23:11 | disposition home or self-care (01) ==
PROVIDERS: Emergency Provider Emergency Medicine
DX: R11.2 Nausea with vomiting, unspecified (principal); Z79.818 Long term (current) use of other agents affecting estrogen receptors and estrogen levels; Z79.810 Long term (current) use of selective estrogen receptor modulators (SERMs)
CPT/HCPCS: 36415; 80053; 81003; 83690; 85025; 96361; 96374; 96375; 99284; C9113; J2405

== ENCOUNTER 2022-05-28 15:54 | Emergency (ER) | payer OTHER, MEDICAID, SELFPAY ==
[2022-05-28 16:02] VITALS: BP 120/76; PULSE 69; RESP 14; TEMP 36.9; O2SAT 98; BMI 17.2
--- NOTE | 2022-05-28 16:51 | ED.WOUNDLAC ---
HPI - Wound/Laceration <ANTONIO Richards - Last Filed: 05/28/22 17:23> General Chief Complaint: Wound/Laceration Stated Complaint: lt pointer finger laceration Time Seen by Provider: 05/28/22 16:43 Source: patient Mode of arrival: Family Vehicle History of Present Illness HPI narrative: This is a 32-year-old female presents to the emergency department after she accidentally cut herself using rotary wheel to fabric. She is right-handed, states that she cut the tip of her left index finger Related Data Allergies Allergy/AdvReac Type Severity Reaction Status Date / Time No Known Drug Allergies Allergy Verified 05/28/22 16:01 Review of Systems <ANTONIO Richards - Last Filed: 05/28/22 17:23> Review of Systems ROS Unobtainable: All systems reviewed & are unremarkable except as noted in HPI and below Patient History <ANTONIO Richards - Last Filed: 05/28/22 17:23> Medical History No significant past medical history Surgical History No pertinent past surgical history Social History Smoking Status: Never smoker Smoking Status: Never smoker alcohol intake frequency: 0-2 drinks per day Substance Use Type: marijuana Exam <ANTONIO Richards - Last Filed: 05/28/22 17:23> Narrative Exam Narrative: MSK: Left finger with superficial laceration, partially through the dermis in 1 aspect but the wound edges do not separate, bleeding controlled with pressure, no laceration over the D IP joint or flexor aspect, full range of motion, brisk cap refill, no range of motion or other injury. Patient can flex and extend without deficit. Wound was thoroughly cleaned with normal saline, use skin glue with Steri-Strips and a dry Band-Aid to both edges of the wound, in the middle of the laceration the skin edges are well approximated and without laceration so the wound itself does not gape with movement of the finger. Hemostasis achieved., no mobility deficit Initial Vital Signs Initial Vital Signs: Vital Signs Temperature 98.4 F 05/28/22 16:02 Pulse Rate 69 05/28/22 16:02 Respiratory Rate 14 05/28/22 16:02 Blood Pressure 120/76 05/28/22 16:02 Pulse Oximetry 98 05/28/22 16:02 Oxygen Delivery Method Room Air 05/28/22 16:02 <Michelle Garcia DO - Last Filed: 06/01/22 08:43> Initial Vital Signs Initial Vital Signs: Vital Signs Temperature 98.4 F 05/28/22 16:02 Pulse Rate 69 05/28/22 16:02 Respiratory Rate 14 05/28/22 16:02 Blood Pressure 120/76 05/28/22 16:02 Pulse Oximetry 98 05/28/22 16:02 Oxygen Delivery Method Room Air 05/28/22 16:02 Course <ANTONIO Richards - Last Filed: 05/28/22 17:23> Orders Ordered: Discontinued Medications Bacitracin (Bacitracin Oint 0.9 Gm Pckt) 1 applic TOP NOW ONE Stop: 05/28/22 16:49 Last Admin: 05/28/22 17:00 Dose: 1 applic Documented By: IMAN Ketorolac Tromethamine (Ketorolac 30 Mg/Ml Vial) 15 mg IM NOW ONE Stop: 05/28/22 16:49 Last Admin: 05/28/22 17:01 Dose: 15 mg Documented By: IMAN Lidocaine HCl (Lidocaine 2% Inj Sdv 5ml) 5 ml INJ INTRA-OP ONE Stop: 05/28/22 16:49 Last Admin: 05/28/22 17:00 Dose: 5 ml Documented By: IMAN Vital Signs Vital signs: Vital Signs - 8 hr 05/28/22 16:02 Temperature 98.4 F Pulse Rate 69 Respiratory Rate 14 Blood Pressure 120/76 Pulse Oximetry 98 Oxygen Delivery Method Room Air <Michelle Garcia DO - Last Filed: 06/01/22 08:43> Orders Ordered: Discontinued Medications Bacitracin (Bacitracin Oint 0.9 Gm Pckt) 1 applic TOP NOW ONE Stop: 05/28/22 16:49 Last Admin: 05/28/22 17:00 Dose: 1 applic Documented By: IMAN Ketorolac Tromethamine (Ketorolac 30 Mg/Ml Vial) 15 mg IM NOW ONE Stop: 05/28/22 16:49 Last Admin: 05/28/22 17:01 Dose: 15 mg Documented By: IMAN Lidocaine HCl (Lidocaine 2% Inj Sdv 5ml) 5 ml INJ INTRA-OP ONE Stop: 05/28/22 16:49 Last Admin: 05/28/22 17:00 Dose: 5 ml Documented By: IMAN Vital Signs Vital signs: Vital Signs - 8 hr 05/28/22 16:02 Temperature 98.4 F Pulse Rate 69 Respiratory Rate 14 Blood Pressure 120/76 Pulse Oximetry 98 Oxygen Delivery Method Room Air MDM - Wound/Laceration <Celestina Handy, [facility] - Last Filed: 05/28/22 17:23> MDM Narrative Medical decision making narrative: Chief Complaint: Finger laceration Independent historian: Patient Differential diagnoses include but are not limited to: Finger laceration, tendon injury, vascular injury, fingernail injury, fracture, foreign body I have independently reviewed the patient's vital signs and nursing notes as well as prior records if available. Patient's wound was thoroughly irrigated with normal saline, she tolerated this well, after careful evaluation, the wound edges are not separate, use skin glue to help secure the wound on either edge, 2 Steri-Strips were placed when the wound was dry and a dry Band-Aid was applied. Patient tolerated this well, there is no further bleeding. She is given return precautions for worsening, redness or streaking up her finger, or complications from this wound. Imaging not indicated as there were no foreign bodies Social considerations that may affect disposition: none Questions are addressed and there is agreement with the plan and for follow-up. Patient is appropriate for outpatient management. MIPS: This encounter doesn't have any diagnosis' associated with MIPS criteria. Discharge Plan Departure Patient Disposition: Home Clinical Impression: Laceration Instructions: DI for Laceration Repair-Skin Closure Strips, How to Care for a Surgical Wound-Skin Glue Activity Restrictions/Additional Instructions: *You have been diagnosed with a finger laceration which did not extend fully through the dermis. Please nurse this cut along for the next day or 2 until the wound edges heal together. Allow the Steri-Strips to fall off, okay to use antibiotic ointment if you are not trying to keep something sticking on it. Follow-up with your primary care provider if you have worsening, use topical antibiotic ointment when there is nothing sticky, I hope you feel better soon, *What to do: *Please continue to take your regular medications as directed. [ ] New medication prescriptions sent to your pharmacy: [ ] [ ] New medication written as a paper prescription [x ] No new medications given *Please follow up with your primary care provider in 2-3 days, call for an appointment. Let them know you were seen in the Emergency Department and that we asked that you be seen for follow-up. We will electronically transmit a record of today's note if your PCP is in our system *If you do not have a primary care provider please contact [phone] to establish care with one of the [facility] primary care providers. *Return to Emergency Department if you should have any new, worsening, or concerning symptoms, such as [fever greater than 101F, chills, worsening pain, persistent vomiting or other bothersome symptoms]. Stand Alone Forms: Patient Portal/API <Michelle Garcia DO - Last Filed: 06/01/22 08:43> Cosign ED Attending Jesseniaature Attestation: I was immediately available in the department for consultation.
[2022-05-28] MEDS: BACITRACIN OINT 0.9 GM PCKT 1 APPLIC TOP (17:00)
[2022-05-28] MEDS: LIDOCAINE 2% INJ SDV 5ML 5 ML INJ (17:00)
[2022-05-28] MEDS: KETOROLAC 30 MG/ML VIAL 15 MG IM (17:01)
== END 2022-05-28 17:22 | disposition home or self-care (01) ==
PROVIDERS: Emergency Provider Nurse Practitioner Critical Care Medicine
DX: S61.211A Laceration without foreign body of left index finger without damage to nail, initial encounter (principal); W26.8XXA Contact with other sharp object(s), not elsewhere classified, initial encounter
CPT/HCPCS: 96372; 99283; J1885